=== PATIENT | male | born 1945 | race Caucasian/White ===

== ENCOUNTER 2021-08-31 10:11 | Inpatient (IN) | payer OTHER ==
[~2021-08-31] VITALS: Ht 170.2 cm; Wt 90.5 kg
[2021-08-31 10:20] VITALS: BP 108/69
[2021-08-31] MEDS ORDERED: COZAAR 25 MG TA25 M1 PO (10:24)
[2021-08-31] MEDS ORDERED: LIPITOR10 MG PO (10:30)
[2021-08-31 10:33] LABS: PO2 74.7 mmHg (75.0-100.0); pH 7.558 (7.340-7.450)
--- NOTE | 2021-08-31 11:09 | EKG ---
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1945 Requested By: Rosendo Dunn Order Number: [id number] MD: Charly Langston Measurements Intervals [place] Rate: 95 P: 6 [place]: 147 QRS: -33 QRSD: 122 T: 8 QT: 399 QTc: 502 Interpretive Statements Sinus rhythm Multiple premature complexes, vent & supraven Incomplete right bundle branch block Left ventricular hypertrophy Prolonged QT interval No previous ECG available for comparison Electronically Signed On 08-31-2021 11:09:38 GARAGE DOOR TECHNICIAN by Charly Langston [email or web address] <ELECTRONICALLY SIGNED> By: Charly Langston MD, [facility] 08/31/21 6789 1010 1010 Charly Langston MD, [facility] /EPI
[2021-08-31 11:18] LABS: HEMATOCRIT 40.5 % (42.0-52.0); HEMOGLOBIN 14.7 gm/dL (14.0-18.0); MCH 31.7 pg (26.0-34.0); MCHC 36.4 g/dL (28.0-37.0); MCV 87.1 fL (80.0-100.0); MPV 9.1 fl. (7.2-11.1); NUCLEATED RBCS 0 /100WBC; PLATELET COUNT* 117 thou/uL (150-400); RBC 4.65 mil/uL (4.50-6.00); RDW-CV 13.3 % (10.5-14.5); WBC 5.5 thou/uL (4.0-11.0)
[2021-08-31 11:33] LABS: CALCIUM 8.2 mg/dL (8.5-10.1); CREATININE 1.4 mg/dL (0.6-1.3)
[2021-08-31 11:54] LABS: ALBUMIN 2.9 g/dL (3.4-5.0); TOTAL BILIRUBIN 1.2 mg/dL (<0.1-1.0); TOTAL PROTEIN 6.8 g/dL (6.4-8.2)
[2021-08-31 12:06] LABS: POTASSIUM 2.8 mmol/L (3.5-5.1)
[2021-08-31 12:12] LABS: ABSOLUTE LYMPHOCYTES 0.4 thou/uL (0.8-5.3); ABSOLUTE MONOCYTES 0.4 thou/uL (0.0-1.2); ABSOLUTE NEUTROPHILS 4.7 thou/uL (1.6-8.1); PLATELET ESTIMATE DECREASED
[2021-08-31] MEDS ORDERED: KLOR-CON 1010 MEQ PO (12:43)
[2021-08-31] MEDS ORDERED: LOSARTAN-HCTZ1 EAC3 PO (12:43)
[2021-08-31 15:33] LABS: CALCIUM 7.9 mg/dL (8.5-10.1); CREATININE 1.4 mg/dL (0.6-1.3)
[2021-08-31 15:36] LABS: MAGNESIUM 2.2 mg/dL (1.8-2.4); PHOSPHORUS* 2.2 mg/dL (2.5-4.9)
[2021-08-31 16:47] VITALS: BP 112/69
[2021-08-31 21:00] VITALS: BP 105/75
[2021-09-01 03:17] LABS: ABSOLUTE LYMPHOCYTES 0.3 thou/uL (0.8-5.3); ABSOLUTE MONOCYTES 0.5 thou/uL (0.0-1.2); ABSOLUTE NEUTROPHILS 3.8 thou/uL (1.6-8.1); BASOPHILS 0.2 %; HEMATOCRIT 35.7 % (42.0-52.0); LYMPHOCYTES 7.4 %; MCH 31.2 pg (26.0-34.0); MCHC 35.4 g/dL (28.0-37.0); MCV 88.1 fL (80.0-100.0); MONOCYTES 10.9 %; MPV 8.7 fl. (7.2-11.1); NUCLEATED RBCS 0 /100WBC; PLATELET COUNT* 116 thou/uL (150-400); POLYS 81.5 %; RBC 4.05 mil/uL (4.50-6.00); RDW-CV 13.6 % (10.5-14.5); WBC 4.6 thou/uL (4.0-11.0)
[2021-09-01 03:24] LABS: HEMOGLOBIN 12.7 gm/dL (14.0-18.0)
[2021-09-01 03:52] LABS: CALCIUM 7.2 mg/dL (8.5-10.1); CREATININE 1.2 mg/dL (0.6-1.3); POTASSIUM 3.2 mmol/L (3.5-5.1)
[2021-09-01 07:54] VITALS: BP 109/60
[2021-09-01 13:18] VITALS: BP 122/75
[2021-09-01 14:16] VITALS: BP 122/75
[2021-09-01 17:26] VITALS: BP 119/76
[2021-09-01 20:00] LABS: ABSOLUTE BASOPHILS 0.1 thou/uL (0.0-0.2); ABSOLUTE LYMPHOCYTES 0.3 thou/uL (0.8-5.3); ABSOLUTE MONOCYTES 0.6 thou/uL (0.0-1.2); ABSOLUTE NEUTROPHILS 7.1 thou/uL (1.6-8.1); BASOPHILS 0.6 %; HEMATOCRIT 37.3 % (42.0-52.0); HEMOGLOBIN 13.3 gm/dL (14.0-18.0); MCH 31.5 pg (26.0-34.0); MCHC 35.8 g/dL (28.0-37.0); MONOCYTES 6.9 %; MPV 8.8 fl. (7.2-11.1); NUCLEATED RBCS 0 /100WBC; PLATELET COUNT* 152 thou/uL (150-400); POLYS 88.5 %; RBC 4.24 mil/uL (4.50-6.00); RDW-CV 13.7 % (10.5-14.5)
[2021-09-01 20:08] LABS: APTT 27.5 Seconds (25.0-31.3); INR 1.1; PROTIME 10.9 Seconds (9.20-11.50)
[2021-09-01 20:19] VITALS: BP 125/83
[2021-09-01 20:22] LABS: ALBUMIN 2.4 g/dL (3.4-5.0); CALCIUM 7.7 mg/dL (8.5-10.1); CREATININE 1.3 mg/dL (0.6-1.3); MAGNESIUM 2.1 mg/dL (1.8-2.4); POTASSIUM 3.7 mmol/L (3.5-5.1); TOTAL BILIRUBIN 0.9 mg/dL (<0.1-1.0); TOTAL PROTEIN 6.1 g/dL (6.4-8.2)
[2021-09-02 02:29] VITALS: BP 142/79
[2021-09-02 04:02] LABS: ABSOLUTE LYMPHOCYTES 0.4 thou/uL (0.8-5.3); ABSOLUTE MONOCYTES 0.7 thou/uL (0.0-1.2); ABSOLUTE NEUTROPHILS 6.6 thou/uL (1.6-8.1); BASOPHILS 0.3 %; HEMATOCRIT 36.4 % (42.0-52.0); HEMOGLOBIN 12.9 gm/dL (14.0-18.0); LYMPHOCYTES 5.4 %; MCH 31.5 pg (26.0-34.0); MCHC 35.3 g/dL (28.0-37.0); MCV 89.2 fL (80.0-100.0); MONOCYTES 9.1 %; MPV 8.9 fl. (7.2-11.1); NUCLEATED RBCS 0 /100WBC; PLATELET COUNT* 162 thou/uL (150-400); POLYS 85.2 %; RBC 4.09 mil/uL (4.50-6.00); RDW-CV 13.8 % (10.5-14.5); WBC 7.8 thou/uL (4.0-11.0)
[2021-09-02 04:41] LABS: ALBUMIN 2.3 g/dL (3.4-5.0); CALCIUM 7.2 mg/dL (8.5-10.1); CREATININE 1.2 mg/dL (0.6-1.3); MAGNESIUM 1.7 mg/dL (1.8-2.4); POTASSIUM 3.7 mmol/L (3.5-5.1); TOTAL BILIRUBIN 0.7 mg/dL (<0.1-1.0); TOTAL PROTEIN 5.7 g/dL (6.4-8.2)
[2021-09-02 05:48] VITALS: BP 128/81
--- NOTE | 2021-09-02 11:41 | 2DMMODE ---
[place] [address] 2 D/M-MODE ECHOCARDIOGRAM Name: NICOLE CHARLES Room: [address] IN [facility]#: [id number] Admission: 08/31/21 Attend Phys: Abhishek Weeks, Discharge: Date of : 47 Date of Service: 09/02/21 1140 Report #: [id number] THIS REPORT FOR: cc: Physician not on staff Physician not on staff Charly Langston MD [facility] ~ APPROVED REPORT Study performed: 09/02/2021 10:19:05 EXAM: Comprehensive 2D, Doppler, and color-flow Echocardiogram Patient Location: In-Patient Room #: [facility] Status: routine BSA: 2.04 HR: 79 bpm BP: 128/81 mmHg Rhythm: NSR Other Information Study Quality: Good Indications Dyspnea 2D Dimensions IVSd: 11.33 (7-11mm) LVDd: 48.12 mm PWd: 11.18 (7-11mm) Ascending Ao: 22.03 (22-36mm) LVDs: 33.27 (25-40mm) Aortic Root: 34.02 mm Volumes Left Atrial Volume (Systole) LA ESV Index: 30.60 mL/m2 Aortic Valve AoV Peak Jose.: 1.69 m/s AO Peak Gr.: 11.38 mmHg LVOT Max P.36 mmHg AO Mean Gr.: 5.37 mmHg LVOT Mean P.67 mmHg LVOT Max V: 1.36 m/s AO V2 VTI: 37.21 cm LVOT Mean V: 0.89 m/s JUVE (VTI): 8.21 cm2 LVOT V1 VTI: 36.93 cm AI Gosper: 2.55 m/s2 [place] [address] 2 D/M-MODE ECHOCARDIOGRAM Name: NICOLE CHARLES Room: [address] IN [facility]#: [id number] Admission: 08/31/21 Attend Phys: Abhishek Weeks, Discharge: Date of : 47 Date of Service: 09/02/21 1140 Report #: [id number] AI PHT: 489.56 ms Mitral Valve E/A Ratio: 0.56 MV Decel. Time: 117.99 ms MV E Max Jose.: 0.62 m/s MV PHT: 34.22 ms MVA (PHT): 6.43 cm2 TDI E/Lateral E': 6.20 E/Medial E': 10.33 Medial E' Jose.: 0.06 m/s Lateral E' Jose.: 0.10 m/s Pulmonary Valve PV Peak Ojse.: 1.19 m/s PV Peak Gr.: 5.62 mmHg Tricuspid Valve RAP Estimate: 5.00 mmHg TR Peak Gr.: 29.01 mmHg RVSP: 34.00 mmHg PA Pressure: 34.00 mmHg Left Ventricle The left ventricle is normal size. There is normal LV segmental wall motion. There is normal left ventricular wall thickness. Left ventricular systolic function is normal. The left ventricular ejection fraction is within the normal range. LVEF is 60-65%. Grade I - abnormal relaxation pattern. Right Ventricle The right ventricle is normal size. The right ventricular systolic function is normal. Atria The left atrium size is normal. The right atrium size is normal. Aortic Valve Mild aortic valve sclerosis. Mild aortic regurgitation. There is no aortic valvular stenosis. Mitral Valve The mitral valve is normal in structure. Mild mitral regurgitation. No evidence of mitral valve stenosis[place] [address] 2 D/M-MODE ECHOCARDIOGRAM Name: NICOLE CHARLES Room: [address]#: [id number] Admission: 08/31/21 Attend Phys: Abhishek Weeks, Discharge: Date of : 47 Date of Service: 09/02/21 1140 Report #: [id number] The tricuspid valve is normal in structure. Mild tricuspid regurgitation. Mild pulmonary hypertension. Pulmonic Valve The pulmonary valve is normal in structure. Mild pulmonic regurgitation. Great Vessels The aortic root is normal in size. IVC is normal in size and collapses >50% with inspiration. Pericardium There is no pericardial effusion. <Conclusion> The left ventricle is normal size. There is normal left ventricular wall thickness. Left ventricular systolic function is normal. The left ventricular ejection fraction is within the normal range. LVEF is 60-65%. Grade I - abnormal relaxation pattern. The right ventricle is normal size. The left atrium size is normal. Mild aortic valve sclerosis. Mild aortic regurgitation. There is no aortic valvular stenosis. The mitral valve is normal in structure. Mild mitral regurgitation. The tricuspid valve is normal in structure. Mild tricuspid regurgitation. Mild pulmonary hypertension. IVC is normal in size and collapses >50% with inspiration. There is no pericardial effusion. There is normal LV segmental wall motion. <ELECTRONICALLY SIGNED> By: Charly Langston MD, FACC 09/02/21 1140 1140 1140 Charly Langston MD, FACC /INF
[2021-09-02 15:04] VITALS: BP 131/69
[2021-09-02 16:00] VITALS: BP 126/87
[2021-09-02 18:31] LABS: BE 5.1 mmol/L (-2 to +3); PCO2 32.2 mmHg (35.0-45.0); pH 7.543 (7.340-7.450)
[2021-09-02 18:36] LABS: PO2 47.8 mmHg (75.0-100.0)
[2021-09-02 20:00] VITALS: BP 127/67
[2021-09-03 01:27] VITALS: BP 128/82
[2021-09-03 05:21] LABS: ABSOLUTE LYMPHOCYTES 0.4 thou/uL (0.8-5.3); ABSOLUTE MONOCYTES 0.8 thou/uL (0.0-1.2); ABSOLUTE NEUTROPHILS 7.4 thou/uL (1.6-8.1); BASOPHILS 0.1 %; HEMATOCRIT 36.9 % (42.0-52.0); HEMOGLOBIN 13.3 gm/dL (14.0-18.0); LYMPHOCYTES 4.6 %; MCH 31.5 pg (26.0-34.0); MCHC 36.1 g/dL (28.0-37.0); MCV 87.1 fL (80.0-100.0); MONOCYTES 8.9 %; MPV 8.2 fl. (7.2-11.1); NUCLEATED RBCS 0 /100WBC; PLATELET COUNT* 193 thou/uL (150-400); POLYS 86.4 %; RBC 4.24 mil/uL (4.50-6.00); RDW-CV 13.9 % (10.5-14.5); WBC 8.6 thou/uL (4.0-11.0)
[2021-09-03 05:46] VITALS: BP 131/82
[2021-09-03 05:53] LABS: ALBUMIN 2.8 g/dL (3.4-5.0); CALCIUM 7.7 mg/dL (8.5-10.1); CREATININE 1.1 mg/dL (0.6-1.3); MAGNESIUM 2.1 mg/dL (1.8-2.4); POTASSIUM 3.2 mmol/L (3.5-5.1); TOTAL BILIRUBIN 1.1 mg/dL (<0.1-1.0); TOTAL PROTEIN 6.3 g/dL (6.4-8.2)
[2021-09-03 08:00] VITALS: BP 123/73
[2021-09-03 16:00] VITALS: BP 98/72
[2021-09-03 16:53] LABS: CALCIUM 8.3 mg/dL (8.5-10.1); CREATININE 1.2 mg/dL (0.6-1.3); POTASSIUM 3.5 mmol/L (3.5-5.1)
[2021-09-03 20:00] VITALS: BP 124/76
[2021-09-04 00:47] VITALS: BP 131/83
[2021-09-04 00:56] LABS: BE 4.3 mmol/L (-2 to +3); PCO2 31.2 mmHg (35.0-45.0); PO2 60.8 mmHg (75.0-100.0); pH 7.539 (7.340-7.450)
[2021-09-04 05:25] VITALS: BP 128/82
[2021-09-04 05:55] LABS: ABSOLUTE LYMPHOCYTES 0.5 thou/uL (0.8-5.3); ABSOLUTE MONOCYTES 0.9 thou/uL (0.0-1.2); ABSOLUTE NEUTROPHILS 7.6 thou/uL (1.6-8.1); BASOPHILS 0.1 %; HEMATOCRIT 39.7 % (42.0-52.0); HEMOGLOBIN 13.8 gm/dL (14.0-18.0); MCH 30.9 pg (26.0-34.0); MCHC 34.7 g/dL (28.0-37.0); MCV 89.2 fL (80.0-100.0); MPV 8.5 fl. (7.2-11.1); NUCLEATED RBCS 0 /100WBC; PLATELET COUNT* 216 thou/uL (150-400); POLYS 84.9 %; RBC 4.45 mil/uL (4.50-6.00); RDW-CV 13.7 % (10.5-14.5)
[2021-09-04 05:59] LABS: ALBUMIN 2.8 g/dL (3.4-5.0); CALCIUM 7.6 mg/dL (8.5-10.1); CREATININE 1.2 mg/dL (0.6-1.3); MAGNESIUM 1.8 mg/dL (1.8-2.4); POTASSIUM 3.6 mmol/L (3.5-5.1); TOTAL BILIRUBIN 1.5 mg/dL (<0.1-1.0); TOTAL PROTEIN 6.2 g/dL (6.4-8.2)
[2021-09-04 08:00] VITALS: BP 149/80
[2021-09-04 12:54] VITALS: BP 112/78
[2021-09-04 16:00] VITALS: BP 126/84
[2021-09-04 20:00] VITALS: BP 129/77
[2021-09-05] VITALS: BP 128/78
[2021-09-05 04:00] VITALS: BP 138/77
[2021-09-05 08:00] VITALS: BP 148/93
[2021-09-05 12:00] VITALS: BP 122/82
[2021-09-05 16:00] VITALS: BP 126/77
[2021-09-05 20:00] VITALS: BP 126/73
[2021-09-05 20:55] LABS: HEMOGLOBIN 14.8 gm/dL (14.0-18.0); MCH 31.1 pg (26.0-34.0); MCHC 34.4 g/dL (28.0-37.0); MCV 90.4 fL (80.0-100.0); MPV 8.5 fl. (7.2-11.1); NUCLEATED RBCS 0 /100WBC; PLATELET COUNT* 258 thou/uL (150-400); RBC 4.75 mil/uL (4.50-6.00); RDW-CV 13.9 % (10.5-14.5); WBC 12.7 thou/uL (4.0-11.0)
[2021-09-05 21:03] LABS: ALBUMIN 2.8 g/dL (3.4-5.0); CALCIUM 8.5 mg/dL (8.5-10.1); CREATININE 1.2 mg/dL (0.6-1.3); MAGNESIUM 2.3 mg/dL (1.8-2.4); POTASSIUM 4.3 mmol/L (3.5-5.1); TOTAL BILIRUBIN 1.5 mg/dL (<0.1-1.0); TOTAL PROTEIN 6.4 g/dL (6.4-8.2)
[2021-09-05 22:12] LABS: ABSOLUTE LYMPHOCYTES 0.4 thou/uL (0.8-5.3); ABSOLUTE MONOCYTES 0.8 thou/uL (0.0-1.2); ABSOLUTE NEUTROPHILS 11.6 thou/uL (1.6-8.1)
[2021-09-05 22:13] LABS: PLATELET ESTIMATE ADEQUATE
[2021-09-06] VITALS: BP 125/71
[2021-09-06 04:00] VITALS: BP 128/7
[2021-09-06 05:04] LABS: BE 2.2 mmol/L (-2 to +3); PCO2 30.1 mmHg (35.0-45.0); pH 7.522 (7.340-7.450)
[2021-09-06 05:11] LABS: ABSOLUTE LYMPHOCYTES 0.5 thou/uL (0.8-5.3); ABSOLUTE NEUTROPHILS 13.4 thou/uL (1.6-8.1); BASOPHILS 0.1 %; HEMATOCRIT 42.5 % (42.0-52.0); HEMOGLOBIN 14.6 gm/dL (14.0-18.0); LYMPHOCYTES 3.5 %; MCH 31.1 pg (26.0-34.0); MCHC 34.3 g/dL (28.0-37.0); MCV 90.6 fL (80.0-100.0); MONOCYTES 6.7 %; MPV 8.7 fl. (7.2-11.1); NUCLEATED RBCS 0 /100WBC; PLATELET COUNT* 267 thou/uL (150-400); POLYS 89.7 %; RBC 4.69 mil/uL (4.50-6.00); RDW-CV 13.9 % (10.5-14.5); WBC 14.9 thou/uL (4.0-11.0)
[2021-09-06 05:17] LABS: ALBUMIN 3.3 g/dL (3.4-5.0); CALCIUM 8.6 mg/dL (8.5-10.1); CREATININE 1.4 mg/dL (0.6-1.3); MAGNESIUM 2.1 mg/dL (1.8-2.4); POTASSIUM 4.1 mmol/L (3.5-5.1); TOTAL BILIRUBIN 1.7 mg/dL (<0.1-1.0)
[2021-09-06 06:24] LABS: PO2 56.4 mmHg (75.0-100.0)
[2021-09-06 12:00] VITALS: BP 128/77
[2021-09-06 16:00] VITALS: BP 142/76
[2021-09-06 20:30] VITALS: BP 120/80
[2021-09-07] VITALS: BP 131/84
[2021-09-07 04:00] VITALS: BP 137/72
[2021-09-07 08:00] VITALS: BP 108/55
[2021-09-07 12:33] VITALS: BP 125/74
[2021-09-07 16:14] VITALS: BP 112/76
[2021-09-07 17:44] LABS: CALCIUM 8.8 mg/dL (8.5-10.1); CREATININE 1.4 mg/dL (0.6-1.3); POTASSIUM 3.5 mmol/L (3.5-5.1); TOTAL BILIRUBIN 1.5 mg/dL (<0.1-1.0); TOTAL PROTEIN 6.6 g/dL (6.4-8.2)
[2021-09-07 23:06] LABS: MYCOPLASMA PNEUMONIA IgG 117 U/mL (0-99); MYCOPLASMA PNEUMONIA IgM <770 U/mL (0-769)
[2021-09-08 00:28] VITALS: BP 125/65
[2021-09-08 04:00] VITALS: BP 138/70
[2021-09-08 09:40] VITALS: BP 105/65
[2021-09-08 12:00] VITALS: BP 117/66
[2021-09-08 16:00] VITALS: BP 130/78
[2021-09-08 20:01] VITALS: BP 109/62
[2021-09-09] VITALS: BP 137/67
[2021-09-09 04:00] VITALS: BP 116/60
[2021-09-09 08:00] VITALS: BP 124/66
[2021-09-09 12:00] VITALS: BP 112/67
[2021-09-09 16:00] VITALS: BP 124/91
[2021-09-09 19:18] LABS: ABSOLUTE LYMPHOCYTES 0.3 thou/uL (0.8-5.3); ABSOLUTE MONOCYTES 0.6 thou/uL (0.0-1.2); ABSOLUTE NEUTROPHILS 14.8 thou/uL (1.6-8.1); BASOPHILS 0.1 %; HEMATOCRIT 44.7 % (42.0-52.0); HEMOGLOBIN 15.5 gm/dL (14.0-18.0); LYMPHOCYTES 1.8 %; MCH 31.4 pg (26.0-34.0); MCHC 34.6 g/dL (28.0-37.0); MCV 90.8 fL (80.0-100.0); MONOCYTES 3.9 %; MPV 8.8 fl. (7.2-11.1); NUCLEATED RBCS 0 /100WBC; PLATELET COUNT* 233 thou/uL (150-400); POLYS 94.2 %; RBC 4.92 mil/uL (4.50-6.00); RDW-CV 13.9 % (10.5-14.5); WBC 15.7 thou/uL (4.0-11.0)
[2021-09-10 00:49] VITALS: BP 139/78
[2021-09-10 04:42] VITALS: BP 138/76
[2021-09-10 06:24] LABS: BE 4.9 mmol/L (-2 to +3); PCO2 39.2 mmHg (35.0-45.0); PO2 88.8 mmHg (75.0-100.0); pH 7.481 (7.340-7.450)
[2021-09-10 08:00] VITALS: BP 120/65
[2021-09-10 13:12] VITALS: BP 135/66
[2021-09-10 15:40] LABS: HEMATOCRIT 40.1 % (42.0-52.0); HEMOGLOBIN 13.7 gm/dL (14.0-18.0); MCH 31.3 pg (26.0-34.0); MCHC 34.1 g/dL (28.0-37.0); MCV 91.8 fL (80.0-100.0); MPV 9.3 fl. (7.2-11.1); RBC 4.37 mil/uL (4.50-6.00); RDW-CV 13.9 % (10.5-14.5)
[2021-09-10 15:53] LABS: ALBUMIN 2.3 g/dL (3.4-5.0); CALCIUM 8.5 mg/dL (8.5-10.1); CREATININE 1.4 mg/dL (0.6-1.3); MAGNESIUM 2.4 mg/dL (1.8-2.4); POTASSIUM 4.6 mmol/L (3.5-5.1); TOTAL BILIRUBIN 1.3 mg/dL (<0.1-1.0); TOTAL PROTEIN 5.4 g/dL (6.4-8.2)
[2021-09-10 16:00] VITALS: BP 127/71
[2021-09-11] VITALS: BP 130/79
[2021-09-11 04:01] VITALS: BP 103/67
[2021-09-11 05:07] LABS: HEMOGLOBIN 13.5 gm/dL (14.0-18.0); MCH 30.8 pg (26.0-34.0); MCHC 33.8 g/dL (28.0-37.0); MPV 8.8 fl. (7.2-11.1); NUCLEATED RBCS 0 /100WBC; PLATELET COUNT* 166 thou/uL (150-400); RBC 4.39 mil/uL (4.50-6.00); RDW-CV 13.9 % (10.5-14.5)
[2021-09-11 06:24] LABS: ABSOLUTE LYMPHOCYTES 0.2 thou/uL (0.8-5.3); ABSOLUTE MONOCYTES 0.4 thou/uL (0.0-1.2); ABSOLUTE NEUTROPHILS 11.4 thou/uL (1.6-8.1)
[2021-09-11 06:25] LABS: PLATELET ESTIMATE ADEQUATE
[2021-09-11 11:00] VITALS: BP 130/80
[2021-09-12] VITALS: BP 115/72
[2021-09-12 04:00] VITALS: BP 117/72
[2021-09-12 08:00] VITALS: BP 105/59
[2021-09-12 12:48] VITALS: BP 109/67
[2021-09-12 16:54] VITALS: BP 149/65
[2021-09-12 20:00] VITALS: BP 113/67
--- NOTE | 2021-09-12 21:54 | CON ---
[address] [address] CONSULTATION Name: NICOLE CHARLES Taylor Room: [address] IN [facility].R.#: [id number] Admission: 08/31/21 Attend Phys: Abhishek Weeks MD Discharge: Date of : 47 Report #: [id number] THIS REPORT FOR: cc: Physician not on staff Physician not on staff Bright Guthrie MD ~ DATE OF CONSULTATION: 09/01/2021 REQUESTING PHYSICIAN: Consult has been requested by Dr. Weeks. INDICATION FOR CONSULTATION: Acute hypoxemic respiratory failure secondary to COVID-19. HISTORY OF PRESENT ILLNESS: A 76-year-old gentleman. He only has a remote history of smoking. He does not have a previous history of a cardiac or respiratory disease. He is unvaccinated for COVID-19. At this time, the patient is admitted with acute respiratory failure secondary to COVID-19. He is profoundly hypoxemic at this time, came on 100% FiO2 with 35 liters of flow on heated high-flow nasal cannula and this is needed to maintain O2 saturation in the low 90s. He reports having increasing shortness of breath over the last several days. He does have a cough. There is not much sputum. There is no chest pain. He does have swelling of lower extremities. There is no calf pain. REVIEW OF SYSTEMS: He answers to the negative for 12 questions for review of systems except as mentioned above. PAST MEDICAL HISTORY: Hypertension, hyperlipidemia. SOCIAL HISTORY: He says he has smoked for several decades ago, but for the last several decades he has not smoked, unable to quantify exactly at this time, 1 alcoholic drink a day. No known history of illegal drug use. ALLERGIES: No known drug allergies. CURRENT MEDICATIONS: List in XL Video reviewed. HOME MEDICATIONS: List in XL Video reviewed. FAMILY HISTORY: No pertinent family history. PHYSICAL EXAMINATION: GENERAL: He is alert, awake and oriented. He did not appear to be in distress; however, is profoundly hypoxemic and was saturating only 94% with 100% FiO2, [address] [place] [address] CONSULTATION Name: NICOLE CHARLES Room: [address]#: [id number] Admission: 08/31/21 Attend Phys: Abhishek Weeks MD Discharge: Date of : 47 Report #: [id number] liters flow on heated high-flow nasal cannula. VITAL SIGNS: Has a pulse of 97 and a blood pressure of 119/76, respiratory rate was elevated to 24. He is afebrile with a temperature of 36.8. HEENT: Head is normocephalic and atraumatic. NECK: Does not show raised JVP, asymmetry, mass or lymph nodes. CHEST: Symmetrical expansion on inspection and palpation. On auscultation, breath sounds are bilaterally equal. There are no added sounds. HEART: Regular. There is no murmur. ABDOMEN: Soft and nontender. EXTREMITIES: Lower extremities, 1+ edema. There is no calf tenderness. SKIN: Dry and intact. NEUROLOGIC: Moves all extremities bilaterally equally and spontaneously with no focal deficit identified. LABORATORY DATA: The patient's chest x-ray is reviewed, in fact will be obtained another chest x-ray now and compared with the patient's chest x-ray performed yesterday. There are worsening infiltrates bilaterally. ASSESSMENT AND PLAN: 1. Acute hypoxemic respiratory failure secondary to COVID-19, titrate oxygen. Suggest adding BiPAP while asleep. Recommend avoiding supine sleep. 2. COVID-19. He has elevation in creatinine. He has rhabdomyolysis. He also does have elevation in LFTs. At this point, however, the benefits of giving him remdesivir to rule out outweigh risks and therefore, for now we will continue, should his liver function worsened, we will discontinue remdesivir later. I increased his dexamethasone to 10 mg IV b.i.d. I recommend that we give him Actemra. Unfortunately, Actemra is not available at this time. 3. Acute renal failure with rhabdomyolysis. His creatinine has trended downwards. The CPK is also improving; however, remains markedly elevated. I understand that there will be some risk in giving him diuresis considering that he has rhabdomyolysis; however, he is profoundly hypoxemic. Therefore, I went ahead and gave him 60 mg of Lasix. We will still continue IV fluids as he has rhabdomyolysis, will at the same time as IV fluids. Keep on giving him diuresis to maintain O2 saturations very cautiously cut back on IV fluids to 80 an hour if he needs more diuresis, which likely he will, then I will consider giving him albumin with Lasix to protect his kidneys. He has significant rhabdomyolysis; however, there is no obvious injury noted. 4. Pulmonary infiltrates, primarily secondary to COVID-19; however, for now, we will also cover her with doxycycline and ceftriaxone for secondary bacterial infections. We will do more cultures and serologies. 5. Elevated liver function tests. We will watch closely while he is on remdesivir. 6. Hypertension/evaluation of cardiac function, we will do an echo. 7. Evaluation for thromboembolic phenomena/deep venous thrombosis prophylaxis [facility] [address] [place] [address] CONSULTATION Name: NICOLE CHARLES Room: [address]#: [id number] Admission: 08/31/21 Attend Phys: Abhishek Weeks MD Discharge: Date of : 47 Report #: [id number] suspicion of thromboembolism is low as his D-dimer is only mildly elevated at 0.64. I will increase his Lovenox to intermediate dose. 8. The patient is critically ill at this time. Total time spent providing critical care to this patient today exceeds 39 minutes. <ELECTRONICALLY SIGNED> By: Bright Guthrie MD 09/12/21 2154 2101 2129Arick Guthrie MD /nt
[2021-09-13 02:01] VITALS: BP 120/73
[2021-09-13 04:51] LABS: HEMATOCRIT 41.4 % (42.0-52.0); HEMOGLOBIN 14.5 gm/dL (14.0-18.0); MCH 31.4 pg (26.0-34.0); MCHC 35.1 g/dL (28.0-37.0); MCV 89.4 fL (80.0-100.0); MPV 9.5 fl. (7.2-11.1); RBC 4.63 mil/uL (4.50-6.00); RDW-CV 13.8 % (10.5-14.5); WBC 20.6 thou/uL (4.0-11.0)
[2021-09-13 05:28] LABS: ALBUMIN 2.1 g/dL (3.4-5.0); CALCIUM 8.6 mg/dL (8.5-10.1); CREATININE 1.1 mg/dL (0.6-1.3); MAGNESIUM 2.4 mg/dL (1.8-2.4); POTASSIUM 4.5 mmol/L (3.5-5.1); TOTAL BILIRUBIN 1.3 mg/dL (<0.1-1.0); TOTAL PROTEIN 5.7 g/dL (6.4-8.2)
[2021-09-13 06:10] VITALS: BP 120/82
[2021-09-13 08:00] VITALS: BP 126/38
[2021-09-13 12:14] VITALS: BP 119/69
[2021-09-13 15:53] VITALS: BP 1138/66
[2021-09-13 20:30] VITALS: BP 117/72
[2021-09-14 02:27] VITALS: BP 115/66
[2021-09-14 05:55] LABS: ABSOLUTE BASOPHILS 0.1 thou/uL (0.0-0.2); ABSOLUTE LYMPHOCYTES 0.3 thou/uL (0.8-5.3); ABSOLUTE MONOCYTES 0.2 thou/uL (0.0-1.2); ABSOLUTE NEUTROPHILS 15.3 thou/uL (1.6-8.1); BASOPHILS 0.4 %; HEMATOCRIT 43.2 % (42.0-52.0); HEMOGLOBIN 14.6 gm/dL (14.0-18.0); LYMPHOCYTES 1.7 %; MCH 31.2 pg (26.0-34.0); MCHC 33.9 g/dL (28.0-37.0); MCV 92.2 fL (80.0-100.0); MONOCYTES 1.5 %; MPV 9.8 fl. (7.2-11.1); NUCLEATED RBCS 0 /100WBC; PLATELET COUNT* 132 thou/uL (150-400); POLYS 96.4 %; RBC 4.68 mil/uL (4.50-6.00); WBC 15.8 thou/uL (4.0-11.0)
[2021-09-14 06:31] VITALS: BP 118/68
[2021-09-14 06:33] LABS: CALCIUM 8.7 mg/dL (8.5-10.1); CREATININE 1.3 mg/dL (0.6-1.3); MAGNESIUM 2.3 mg/dL (1.8-2.4); TOTAL BILIRUBIN 1.4 mg/dL (<0.1-1.0)
[2021-09-14 07:33] VITALS: BP 124/74
[2021-09-14 12:25] VITALS: BP 97/56
[2021-09-14 16:00] VITALS: BP 111/66
[2021-09-15 00:42] VITALS: BP 128/87
[2021-09-15 03:48] VITALS: BP 115/68
[2021-09-15 05:08] LABS: HEMATOCRIT 37.9 % (42.0-52.0); HEMOGLOBIN 13.4 gm/dL (14.0-18.0); MCH 31.7 pg (26.0-34.0); MCHC 35.4 g/dL (28.0-37.0); MCV 89.4 fL (80.0-100.0); MPV 9.3 fl. (7.2-11.1); NUCLEATED RBCS 0 /100WBC; PLATELET COUNT* 97 thou/uL (150-400); RBC 4.24 mil/uL (4.50-6.00); RDW-CV 13.6 % (10.5-14.5); WBC 12.2 thou/uL (4.0-11.0)
[2021-09-15 05:28] LABS: ALBUMIN 1.9 g/dL (3.4-5.0); CALCIUM 8.2 mg/dL (8.5-10.1); CREATININE 1.1 mg/dL (0.6-1.3); MAGNESIUM 2.4 mg/dL (1.8-2.4); POTASSIUM 4.8 mmol/L (3.5-5.1); TOTAL BILIRUBIN 1.2 mg/dL (<0.1-1.0); TOTAL PROTEIN 5.4 g/dL (6.4-8.2)
[2021-09-15 07:13] LABS: ABSOLUTE LYMPHOCYTES 0.2 thou/uL (0.8-5.3); ABSOLUTE MONOCYTES 0.1 thou/uL (0.0-1.2); ABSOLUTE NEUTROPHILS 11.8 thou/uL (1.6-8.1); MYELOCYTES 1 %; PLATELET ESTIMATE DECREASED
[2021-09-15 08:00] VITALS: BP 118/64
[2021-09-15 12:05] VITALS: BP 114/71
[2021-09-15 16:22] VITALS: BP 103/49
[2021-09-15 20:00] VITALS: BP 124/65
[2021-09-16] VITALS: BP 139/82
[2021-09-16 04:00] VITALS: BP 124/72
[2021-09-16 08:00] VITALS: BP 132/48
[2021-09-16 12:00] VITALS: BP 101/65
[2021-09-16 16:00] VITALS: BP 112/58; BP 128/74
[2021-09-17 00:21] VITALS: BP 130/76
[2021-09-17 04:08] VITALS: BP 118/72
[2021-09-17 04:42] LABS: ABSOLUTE LYMPHOCYTES 0.2 thou/uL (0.8-5.3); ABSOLUTE MONOCYTES 0.1 thou/uL (0.0-1.2); ABSOLUTE NEUTROPHILS 12.3 thou/uL (1.6-8.1); BASOPHILS 0.2 %; HEMATOCRIT 38.9 % (42.0-52.0); HEMOGLOBIN 13.6 gm/dL (14.0-18.0); LYMPHOCYTES 1.5 %; MCH 31.5 pg (26.0-34.0); MCHC 34.9 g/dL (28.0-37.0); MCV 90.3 fL (80.0-100.0); MONOCYTES 1.1 %; MPV 9.3 fl. (7.2-11.1); NUCLEATED RBCS 0 /100WBC; PLATELET COUNT* 85 thou/uL (150-400); POLYS 97.2 %; RDW-CV 14.1 % (10.5-14.5); WBC 12.7 thou/uL (4.0-11.0)
[2021-09-17 05:15] LABS: ALBUMIN 1.6 g/dL (3.4-5.0); CALCIUM 8.5 mg/dL (8.5-10.1); CREATININE 1.2 mg/dL (0.6-1.3); MAGNESIUM 2.3 mg/dL (1.8-2.4); POTASSIUM 4.5 mmol/L (3.5-5.1); TOTAL BILIRUBIN 1.1 mg/dL (<0.1-1.0); TOTAL PROTEIN 5.6 g/dL (6.4-8.2)
[2021-09-17 08:00] VITALS: BP 137/70
[2021-09-17 11:36] VITALS: BP 102/60
[2021-09-17 15:56] VITALS: BP 99/48
[2021-09-17 19:48] VITALS: BP 93/61
[2021-09-18] VITALS (16 sets, daily range): BP systolic 85–176; BP diastolic 51–72
[2021-09-18 05:32] LABS: BE 4.7 mmol/L (-2 to +3); PCO2 34.6 mmHg (35.0-45.0); pH 7.516 (7.340-7.450)
[2021-09-18 05:46] LABS: PO2 130.6 mmHg (75.0-100.0)
[2021-09-18 09:14] LABS: ABSOLUTE LYMPHOCYTES 0.2 thou/uL (0.8-5.3); ABSOLUTE MONOCYTES 0.1 thou/uL (0.0-1.2); ABSOLUTE NEUTROPHILS 10.8 thou/uL (1.6-8.1); APTT 26.9 Seconds (25.0-31.3); BASOPHILS 0.2 %; EOSINOPHILS 0.1 %; HEMATOCRIT 42.2 % (42.0-52.0); HEMOGLOBIN 14.6 gm/dL (14.0-18.0); INR 1.2; LYMPHOCYTES 1.9 %; MCH 31.4 pg (26.0-34.0); MCHC 34.7 g/dL (28.0-37.0); MCV 90.5 fL (80.0-100.0); MONOCYTES 1.3 %; MPV 9.9 fl. (7.2-11.1); NUCLEATED RBCS 0 /100WBC; PLATELET COUNT* 65 thou/uL (150-400); POLYS 96.5 %; PROTIME 11.9 Seconds (9.20-11.50); RBC 4.66 mil/uL (4.50-6.00); RDW-CV 14.2 % (10.5-14.5); WBC 11.2 thou/uL (4.0-11.0)
[2021-09-18 09:28] LABS: CALCIUM 8.7 mg/dL (8.5-10.1); CREATININE 1.4 mg/dL (0.6-1.3); POTASSIUM 4.5 mmol/L (3.5-5.1)
[2021-09-18 10:03] LABS: CREATININE 1.3 mg/dL (0.6-1.3); MAGNESIUM 2.5 mg/dL (1.8-2.4); POTASSIUM 4.8 mmol/L (3.5-5.1)
[2021-09-18 17:42] LABS: CALCIUM 8.3 mg/dL (8.5-10.1); CREATININE 1.9 mg/dL (0.6-1.3); MAGNESIUM 2.5 mg/dL (1.8-2.4); POTASSIUM 5.2 mmol/L (3.5-5.1)
[2021-09-18 19:42] LABS: PCO2 36.8 mmHg (35.0-45.0); pH 7.461 (7.340-7.450)
[2021-09-18 19:44] LABS: PO2 136.5 mmHg (75.0-100.0)
[2021-09-19] VITALS (71 sets, daily range): BP systolic 48–148; BP diastolic 35–77
[2021-09-19 04:32] LABS: HEMATOCRIT 33.2 % (42.0-52.0); MCH 31.3 pg (26.0-34.0); MCHC 34.3 g/dL (28.0-37.0); MCV 91.3 fL (80.0-100.0); MPV 9.4 fl. (7.2-11.1); NUCLEATED RBCS 0 /100WBC; PLATELET COUNT* 50 thou/uL (150-400); RBC 3.64 mil/uL (4.50-6.00); RDW-CV 14.2 % (10.5-14.5); WBC 9.5 thou/uL (4.0-11.0)
[2021-09-19 04:51] LABS: HEMOGLOBIN 11.4 gm/dL (14.0-18.0)
[2021-09-19 04:52] LABS: ALBUMIN 2.4 g/dL (3.4-5.0); CALCIUM 8.1 mg/dL (8.5-10.1); CREATININE 2.4 mg/dL (0.6-1.3); MAGNESIUM 2.5 mg/dL (1.8-2.4); PHOSPHORUS* 5.8 mg/dL (2.5-4.9); POTASSIUM 4.7 mmol/L (3.5-5.1); TOTAL BILIRUBIN 1.1 mg/dL (<0.1-1.0); TOTAL PROTEIN 5.9 g/dL (6.4-8.2)
[2021-09-19 06:05] LABS: ABSOLUTE EOSINOPHILS 0.1 thou/uL (0.0-0.7); ABSOLUTE LYMPHOCYTES 0.2 thou/uL (0.8-5.3); ABSOLUTE MONOCYTES 0.2 thou/uL (0.0-1.2)
[2021-09-19 06:06] LABS: PLATELET ESTIMATE DECREASED
--- NOTE | 2021-09-19 09:00 | OP ---
[address] [address] OPERATIVE REPORT Name: NICOLE CHARLES Room: [address] IN [facility].R.#: [id number] Admission: 08/31/21 Attend Phys: Abhishek Weeks MD Discharge: Date of : 47 Report #: [id number] THIS REPORT FOR: cc: Physician not on staff Physician not on staff Esther Starkey MD ~ DATE OF SURGERY: 09/18/2021 PREOPERATIVE DIAGNOSES: Respiratory failure, hypotension. POSTOPERATIVE DIAGNOSES: Respiratory failure, hypotension. OPERATIVE PROCEDURE: Left subclavian triple lumen catheter. ANESTHESIA: 1% lidocaine. DESCRIPTION OF PROCEDURE: The patient was placed in the supine position and Trendelenburg position and the left subclavicular area was prepped and draped in a sterile fashion. A timeout was taken. The area was infiltrated with 1% lidocaine and via Seldinger technique, a needle was passed under the clavicle into the subclavian vein. Wire was threaded safely and the needle retracted, dilated with a #11 scalpel blade and dilator sheath, then threaded to 15 cm with the triple lumen catheter and the wire retrieved. Catheters placed in all 3 ports of the catheter. They were flushed with saline with good blood return. They were secured with sutures and an Op-Site at the end of operative procedure. Chest x-ray showed no evidence of pneumothorax. The patient remains in critical but stable condition. <ELECTRONICALLY SIGNED> By: Esther Starkey MD 09/19/2100 1557 1615Kellucinda Starkey MD /nt
[2021-09-19 12:11] LABS: BE 0.4 mmol/L (-2 to +3); PCO2 39.4 mmHg (35.0-45.0); pH 7.418 (7.340-7.450)
[2021-09-19 12:15] LABS: PO2 178.4 mmHg (75.0-100.0)
[2021-09-19 17:29] LABS: URINE BILIRUBIN NEGATIVE (Negative); URINE BLOOD 3+ (Negative); URINE CLARITY CLEAR; URINE COLOR YELLOW; URINE GLUCOSE-RANDOM NEGATIVE (Negative); URINE KETONES NEGATIVE (Negative); URINE LEUKOCYTES-REFLEX NEGATIVE (Negative); URINE NITRITE-REFLEX NEGATIVE (Negative); URINE PROTEIN TRACE (Negative); URINE SPECIFIC GRAVITY 1.025 (1.005-1.030)
[2021-09-19 17:44] LABS: BACTERIA-REFLEX None Seen /HPF (None Seen); CASTS None Seen /LPF (None Seen); CRYSTALS None Seen /LPF (None Seen); HYALINE CASTS 0-3 Few /LPF (None Seen); SQUAMOUS NONE SEEN /LPF (0-3); URINE WBC-REFLEX None Seen /HPF (0-5)
[2021-09-19 17:54] LABS: ALBUMIN 2.6 g/dL (3.4-5.0); ALKALINE PHOSPHATASE 62 U/L (46-116); ANION GAP 11 mmol/L (7-16); BUN 80 mg/dL (7-18); CALCIUM 7.5 mg/dL (8.5-10.1); CHLORIDE 96 mmol/L (98-107); CO2 24 mmol/L (21-32); CREATININE 3.3 mg/dL (0.6-1.3); GLUCOSE 278 mg/dL (70-99); POTASSIUM 5.7 mmol/L (3.5-5.1); SGOT 105 U/L (15-37); SGPT 68 U/L (30-65); SODIUM 131 mmol/L (136-145); TOTAL BILIRUBIN 1.2 mg/dL (<0.1-1.0); TOTAL PROTEIN 5.6 g/dL (6.4-8.2)
[2021-09-19 18:01] LABS: ABSOLUTE LYMPHOCYTES 0.2 thou/uL (0.8-5.3); ABSOLUTE NEUTROPHILS 4.4 thou/uL (1.6-8.1); BASOPHILS 0.1 %; EOSINOPHILS 0.2 %; HEMATOCRIT 29.8 % (42.0-52.0); HEMOGLOBIN 10.1 gm/dL (14.0-18.0); LYMPHOCYTES 3.8 %; MCH 31.4 pg (26.0-34.0); MCV 92.3 fL (80.0-100.0); MONOCYTES 0.5 %; MPV 10.3 fl. (7.2-11.1); NUCLEATED RBCS 0 /100WBC; POLYS 95.4 %; RBC 3.23 mil/uL (4.50-6.00); RDW-CV 14.5 % (10.5-14.5); WBC 4.6 thou/uL (4.0-11.0)
[2021-09-19 18:04] LABS: PLATELET COUNT* 26 thou/uL (150-400)
[2021-09-19 22:37] LABS: PCO2 37.8 mmHg (35.0-45.0)
[2021-09-19 22:38] LABS: PO2 132.8 mmHg (75.0-100.0); pH 7.292 (7.340-7.450)
--- NOTE | 2021-09-20 11:00 | EKG ---
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1945 Requested By: Miguel A Flood Order Number: [id number] Celestine MD: Tristen Gastelum Measurements Intervals [place] Rate: 109 P: 264 ID: [id number] QRS: -88 QRSD: 98 T: 25 QT: 327 QTc: 441 Interpretive Statements Ectopic atrial tachycardia, unifocal Left anterior fascicular block Low voltage, extremity and precordial leads RSR' in V1 or V2, right VCD or RVH Consider anterior infarct Compared to ECG 08/31/2021 10:10:34 Low QRS voltage now present Myocardial infarct finding now present Sinus rhythm no longer present Left ventricular hypertrophy no longer present Prolonged QT interval no longer present Electronically Signed On 09-20-2021 10:59:33 CALCULATION CLERK by Tristen Gastelum [email or web address] <ELECTRONICALLY SIGNED> By: Tristen Gastelum MD, [facility] 09/20/21 1059 39 39 Tristen Gastelum MD, [facility] /EPI
== END 2021-09-19 23:59 | DRG 208 ==
LOC: M.ERS 10:11 → M.TBA-ER 11:11 → M.ORTHSURG 11:11 → M.2W 09-14 20:23 → M.ICU 09-18 15:56
PROVIDERS: Family Medicine; Internal Medicine; Internal Medicine Critical Care Medicine; Nurse Practitioner Family; ADMIT Internal Medicine; ATTEND Internal Medicine
PROC: XW033E5 Introduction of Remdesivir Anti-infective into Peripheral Vein, Percutaneous Approach, New Technology Group 5 (ICD-10-PCS; principal; 2021-09-01)
PROC: 5A0935A Assistance with Respiratory Ventilation, Less than 24 Consecutive Hours, High Flow/Velocity Cannula (ICD-10-PCS; principal; 2021-09-01)
PROC: 5A0945A Assistance with Respiratory Ventilation, 24-96 Consecutive Hours, High Flow/Velocity Cannula (ICD-10-PCS; 2021-09-02)
PROC: 5A0935A Assistance with Respiratory Ventilation, Less than 24 Consecutive Hours, High Flow/Velocity Cannula (ICD-10-PCS; 2021-09-07)
PROC: 5A0935A Assistance with Respiratory Ventilation, Less than 24 Consecutive Hours, High Flow/Velocity Cannula (ICD-10-PCS; 2021-09-09)
PROC: 5A09357 Assistance with Respiratory Ventilation, Less than 24 Consecutive Hours, Continuous Positive Airway Pressure (ICD-10-PCS; 2021-09-09)
PROC: 5A0935A Assistance with Respiratory Ventilation, Less than 24 Consecutive Hours, High Flow/Velocity Cannula (ICD-10-PCS; 2021-09-10)
PROC: 5A09357 Assistance with Respiratory Ventilation, Less than 24 Consecutive Hours, Continuous Positive Airway Pressure (ICD-10-PCS; 2021-09-10)
PROC: 5A09357 Assistance with Respiratory Ventilation, Less than 24 Consecutive Hours, Continuous Positive Airway Pressure (ICD-10-PCS; 2021-09-11)
PROC: 5A0935A Assistance with Respiratory Ventilation, Less than 24 Consecutive Hours, High Flow/Velocity Cannula (ICD-10-PCS; 2021-09-11)
PROC: 5A0935A Assistance with Respiratory Ventilation, Less than 24 Consecutive Hours, High Flow/Velocity Cannula (ICD-10-PCS; 2021-09-12)
PROC: 5A09357 Assistance with Respiratory Ventilation, Less than 24 Consecutive Hours, Continuous Positive Airway Pressure (ICD-10-PCS; 2021-09-12)
PROC: 5A09357 Assistance with Respiratory Ventilation, Less than 24 Consecutive Hours, Continuous Positive Airway Pressure (ICD-10-PCS; 2021-09-13)
PROC: 5A0935A Assistance with Respiratory Ventilation, Less than 24 Consecutive Hours, High Flow/Velocity Cannula (ICD-10-PCS; 2021-09-13)
PROC: 5A0935A Assistance with Respiratory Ventilation, Less than 24 Consecutive Hours, High Flow/Velocity Cannula (ICD-10-PCS; 2021-09-14)
PROC: 5A09357 Assistance with Respiratory Ventilation, Less than 24 Consecutive Hours, Continuous Positive Airway Pressure (ICD-10-PCS; 2021-09-14)
PROC: 5A0935A Assistance with Respiratory Ventilation, Less than 24 Consecutive Hours, High Flow/Velocity Cannula (ICD-10-PCS; 2021-09-15)
PROC: 5A09357 Assistance with Respiratory Ventilation, Less than 24 Consecutive Hours, Continuous Positive Airway Pressure (ICD-10-PCS; 2021-09-16)
PROC: 5A0935A Assistance with Respiratory Ventilation, Less than 24 Consecutive Hours, High Flow/Velocity Cannula (ICD-10-PCS; 2021-09-16)
PROC: 5A0935A Assistance with Respiratory Ventilation, Less than 24 Consecutive Hours, High Flow/Velocity Cannula (ICD-10-PCS; 2021-09-17)
PROC: 5A09357 Assistance with Respiratory Ventilation, Less than 24 Consecutive Hours, Continuous Positive Airway Pressure (ICD-10-PCS; 2021-09-17)
PROC: B548ZZA Ultrasonography of Superior Vena Cava, Guidance (ICD-10-PCS; 2021-09-18)
PROC: 5A1945Z Respiratory Ventilation, 24-96 Consecutive Hours (ICD-10-PCS; 2021-09-18)
PROC: 5A0935A Assistance with Respiratory Ventilation, Less than 24 Consecutive Hours, High Flow/Velocity Cannula (ICD-10-PCS; 2021-09-18)
PROC: 02HV33Z Insertion of Infusion Device into Superior Vena Cava, Percutaneous Approach (ICD-10-PCS; 2021-09-18)
PROC: 5A09357 Assistance with Respiratory Ventilation, Less than 24 Consecutive Hours, Continuous Positive Airway Pressure (ICD-10-PCS; 2021-09-18)
PROC: 0BH17EZ Insertion of Endotracheal Airway into Trachea, Via Natural or Artificial Opening (ICD-10-PCS; 2021-09-18)
PROC: 5A12012 Performance of Cardiac Output, Single, Manual (ICD-10-PCS; 2021-09-19)
DX: U07.1 COVID-19 (principal); J96.01 Acute respiratory failure with hypoxia; N17.0 Acute kidney failure with tubular necrosis; J12.82 Pneumonia due to coronavirus disease 2019; J15.6 Pneumonia due to other Gram-negative bacteria; M62.82 Rhabdomyolysis; E87.1 Hypo-osmolality and hyponatremia; E78.5 Hyperlipidemia, unspecified; I10 Essential (primary) hypertension; I95.9 Hypotension, unspecified; E87.6 Hypokalemia; E66.9 Obesity, unspecified; B95.8 Unspecified staphylococcus as the cause of diseases classified elsewhere; E88.09 Other disorders of plasma-protein metabolism, not elsewhere classified; R73.9 Hyperglycemia, unspecified; E87.70 Fluid overload, unspecified; I49.9 Cardiac arrhythmia, unspecified; I49.01 Ventricular fibrillation; Z87.891 Personal history of nicotine dependence; Z68.31 Body mass index [BMI] 31.0-31.9, adult; I46.9 Cardiac arrest, cause unspecified